=== PATIENT | male | born 1960 | race African-American/Black ===

== ENCOUNTER 2022-11-19 12:13 | Inpatient (IN) | payer MEDICARE, OTHER ==
[~2022-11-19] VITALS: Ht 177.8 cm; Wt 80.3 kg
[2022-11-19 12:44] LABS: BASOPHILS % (AUTO) 0.1 % (0.0-2.0); EOSINOPHILS % (AUTO) 0.7 % (1.0-6.0); HEMATOCRIT 42.4 % (41-53); HEMOGLOBIN 13.1 g/dL (13.5-17.5); LYMPHOCYTES # (AUTO) 0.5 K/uL (1.0-4.8); LYMPHOCYTES % (AUTO) 4.9 % (22.0-44.0); MEAN CORPUSCULAR HEMOGLOBIN 26.5 pg (26.0-34.0); MEAN CORPUSCULAR HGB CONC 30.8 G/dL (31.0-37.0); MEAN CORPUSCULAR VOLUME 86 fL (80-100); MONOCYTES # (AUTO) 0.1 K/uL (0.1-1.0); MONOCYTES % (AUTO) 0.8 % (2.0-9.0); NEUTROPHILS # (AUTO) 9.1 K/uL (1.8-7.7); PLATELET COUNT (AUTO) 140 K/uL (150-450); RED BLOOD CELL COUNT(AUTO) 4.92 MIL/uL (4.50-5.90); RED CELL DISTRIBUTION WIDTH 18.2 % (11.5-14.5)
[2022-11-19 12:46] LABS: NEUTROPHILS % (AUTO) 93.5 % (40.0-70.0)
[2022-11-19 12:55] LABS: CALCIUM, TOTAL 9.1 mg/dL (8.8-10.5); CREATININE 1.33 mg/dL (0.60-1.30); POTASSIUM 4.4 mmol/L (3.5-5.1)
[2022-11-19 12:56] LABS: INR 1.1 (0.9-1.1); PROTHROMBIN TIME 11.5 SEC (9.4-11.6)
[2022-11-19 13:00] LABS: BILIRUBIN,TOTAL 0.8 mg/dL (0.1-1.0); TOTAL PROTEIN, SERUM 8.6 g/dL (6.4-8.2)
[2022-11-19 13:13] LABS: ALBUMIN 3.4 g/dL (3.4-5.0)
[2022-11-19] MEDS ORDERED: SODIUM CHLORIDE 0.9% 1,000 ML IV ONE (13:15)
[2022-11-19] MEDS ORDERED: LORazepam 2 MG/ML VIAL IVP ONE (13:15)
[2022-11-19] MEDS ORDERED: IPRATROPIUM BROMIDE 0.5 MG/2.5 ML NEB SOLUTION NEB PRN (14:45)
[2022-11-19] MEDS ORDERED: ACETAMINOPHEN 325 MG TABLET PO PRN (14:45)
[2022-11-19] MEDS ORDERED: ALBUTEROL SULFATE 2.5 MG/0.5 ML NEB SOLUTION NEB PRN (14:45)
[2022-11-19] MEDS ORDERED: BISACODYL 10 MG RECTAL RECTAL SUPPOSITORY PR PRN (14:45)
[2022-11-19] MEDS ORDERED: ONDANSETRON HCL 4 MG/2 ML VIAL IVP PRN (14:45)
[2022-11-19] MEDS ORDERED: DEXTROSE 50%-WATER 25 GM/50 ML SYRINGE IVP PRN (14:45)
[2022-11-19] MEDS: SODIUM CHLORIDE 0.9% 1,000 ML IV SCH (15:01)
[2022-11-19 20:04] LABS: COVID AG,FIA SOURCE NASAL SWAB
[2022-11-19] MEDS ORDERED: ASCO500 PO (20:37)
[2022-11-19] MEDS ORDERED: LOSA-381 PO (20:37)
[2022-11-19] MEDS ORDERED: INSU3INS3 SQ (20:37)
[2022-11-19] MEDS ORDERED: EMPA25TA3 PO (20:37)
[2022-11-19] MEDS ORDERED: ASPI-1451 PO (20:37)
[2022-11-19] MEDS ORDERED: CHOL25TA4 PO (20:37)
[2022-11-19] MEDS ORDERED: AMYL1CAP63 PO (20:37)
[2022-11-19] MEDS ORDERED: FISH1CAP27 PO (20:37)
[2022-11-19] MEDS ORDERED: ATOR20TA65 PO (20:37)
[2022-11-20] VITALS (7 sets, daily range): BP systolic 102–110; BP diastolic 52–72
[2022-11-20] MEDS: SODIUM CHLORIDE 0.9% 1,000 ML IV SCH ×2 (03:12→15:33)
[2022-11-20 06:07] LABS: GLUCOMETER DEV NAME(LOC) 5N.1C; GLUCOSE,POINT OF CARE 117 MG/DL (70-110)
[2022-11-20 06:39] LABS: BASOPHILS % (AUTO) 0.3 % (0.0-2.0); EOSINOPHILS % (AUTO) 0.4 % (1.0-6.0); HEMATOCRIT 34.6 % (41-53); LYMPHOCYTES # (AUTO) 0.7 K/uL (1.0-4.8); LYMPHOCYTES % (AUTO) 6.5 % (22.0-44.0); MEAN CORPUSCULAR HEMOGLOBIN 26.8 pg (26.0-34.0); MEAN CORPUSCULAR HGB CONC 31.8 G/dL (31.0-37.0); MEAN CORPUSCULAR VOLUME 84 fL (80-100); MONOCYTES # (AUTO) 0.9 K/uL (0.1-1.0); MONOCYTES % (AUTO) 8.7 % (2.0-9.0); NEUTROPHILS # (AUTO) 8.5 K/uL (1.8-7.7); NEUTROPHILS % (AUTO) 84.1 % (40.0-70.0); PLATELET COUNT (AUTO) 96 K/uL (150-450); RED BLOOD CELL COUNT(AUTO) 4.11 MIL/uL (4.50-5.90); RED CELL DISTRIBUTION WIDTH 17.6 % (11.5-14.5)
[2022-11-20 07:14] LABS: ALANINE AMINOTRANSFERASE 71 U/L (12-78); ALBUMIN 2.6 g/dL (3.4-5.0); ALKALINE PHOSPHATASE 167 U/L (46-116); ANION GAP 7 mmol/L (8-16); ASPARTATE AMINOTRANSFERASE 58 U/L (15-37); BILIRUBIN,TOTAL 0.8 mg/dL (0.1-1.0); CALCIUM, TOTAL 8.1 mg/dL (8.8-10.5); CARBON DIOXIDE 25 mmol/L (22-29); CHLORIDE 104 mmol/L (98-107); CREATININE 1.14 mg/dL (0.60-1.30); FREE T4 (FREE THYROXINE) 0.99 ng/dL (0.76-1.46); GLOMERULAR FILTR. RATE CALC > 60 mL/min (>60); GLUCOSE,RANDOM 90 mg/dL (70-110); POTASSIUM 3.8 mmol/L (3.5-5.1); SODIUM SERUM 136 mmol/L (136-145); UREA NITROGEN, BLOOD 13 mg/dL (7-18)
[2022-11-20] MEDS: ASCORBIC ACID 500 MG TABLET PO SCH (09:27)
[2022-11-20] MEDS: ATORVASTATIN CALCIUM 20 MG TABLET PO SCH (09:27)
[2022-11-20] MEDS: CHOLECALCIFEROL (VIT D3) 1,000 UNITS [25 MCG] TABLET PO SCH (09:27)
[2022-11-20] MEDS ORDERED: AMYLASE/LIPASE/PROTEASE 60/12/38 MU DR CAPSULE PO SCH (11:30)
[2022-11-20] MEDS: AMYLASE/LIPASE/PROTEASE 60/12/38 MU DR CAPSULE PO SCH ×3 (11:52→20:21)
[2022-11-20 13:37] LABS: APPEARANCE,URINE CLEAR (CLEAR); BILIRUBIN,URINE NEGATIVE (NEGATIVE); GLUCOSE, URINE (UA) >=1000 mg/dL (NEGATIVE); KETONES,URINE NEGATIVE (NEGATIVE); LEUKOCYTE ESTERASE ,URINE NEGATIVE (NEGATIVE); NITRATE,URINE NEGATIVE (NEGATIVE); OCCULT BLOOD,URINE NEGATIVE (NEGATIVE); PROTEIN,URINE NEGATIVE (NEGATIVE); SPECIFIC GRAVITIY, URINE 1.012 (1.003-1.030); UROBILINOGEN,URINE <=1.0 mg/dL (<=1.0)
[2022-11-20 13:50] LABS: BACTERIA,URINE None Seen /HPF (None Seen); RBC,URINE None Seen /HPF (0-2); WBC,URINE None Seen /HPF (0-5)
[2022-11-20 13:51] LABS: SQUAMOUS EPITHELIAL CELL,UR Few /LPF (None Seen)
[2022-11-20] MEDS: OMEGA-3/DHA/EPA/FISH OIL 1,000 MG CAPSULE PO SCH ×2 (16:52→20:22)
[2022-11-20 18:31] LABS: GLUCOMETER DEV NAME(LOC) 5S.1B; GLUCOSE,POINT OF CARE 122 MG/DL (70-110)
[2022-11-20 18:32] LABS: GLUCOMETER DEV NAME(LOC) 5S.1B; GLUCOSE,POINT OF CARE 107 MG/DL (70-110)
[2022-11-21] VITALS (7 sets, daily range): BP systolic 106–141; BP diastolic 64–99
[2022-11-21] MEDS: SODIUM CHLORIDE 0.9% 1,000 ML IV SCH ×2 (03:45→17:23)
[2022-11-21] MEDS: AMYLASE/LIPASE/PROTEASE 60/12/38 MU DR CAPSULE PO SCH ×4 (08:49→20:52)
[2022-11-21] MEDS: OMEGA-3/DHA/EPA/FISH OIL 1,000 MG CAPSULE PO SCH ×3 (08:49→20:52)
[2022-11-21] MEDS: ASCORBIC ACID 500 MG TABLET PO SCH (08:49)
[2022-11-21] MEDS: ATORVASTATIN CALCIUM 20 MG TABLET PO SCH (08:50)
[2022-11-21] MEDS: CHOLECALCIFEROL (VIT D3) 1,000 UNITS [25 MCG] TABLET PO SCH (08:50)
[2022-11-21] MEDS ORDERED: BARIUM SULFATE 0.1% SUSPENSION 450 ML BOTTLE ONE (14:20)
[2022-11-21] MEDS ORDERED: SODIUM CHLORIDE 0.9% 100 ML ONE (17:11)
[2022-11-21] MEDS ORDERED: IOHEXOL 350 MG/ML 100 ML VIAL ONE (17:11)
[2022-11-21] MEDS: INSULIN LISPRO 100 UNITS/ML SQ PRN ×2 (17:22→20:52)
[2022-11-21 20:26] LABS: GLUCOMETER DEV NAME(LOC) 5S.1B; GLUCOSE,POINT OF CARE 150 MG/DL (70-110)
[2022-11-21 20:26] LABS: GLUCOMETER DEV NAME(LOC) 5S.1B; GLUCOSE,POINT OF CARE 137 MG/DL (70-110)
[2022-11-21 20:26] LABS: GLUCOMETER DEV NAME(LOC) 5S.1B; GLUCOSE,POINT OF CARE 107 MG/DL (70-110)
[2022-11-22] VITALS (8 sets, daily range): BP systolic 109–136; BP diastolic 63–82
[2022-11-22] MEDS: SODIUM CHLORIDE 0.9% 1,000 ML IV SCH ×2 (05:24→16:25)
[2022-11-22 05:36] LABS: GLUCOMETER DEV NAME(LOC) 5N.1C; GLUCOSE,POINT OF CARE 169 MG/DL (70-110)
[2022-11-22] MEDS: INSULIN LISPRO 100 UNITS/ML SQ PRN ×4 (06:12→21:06)
[2022-11-22 06:55] LABS: BASOPHILS % (AUTO) 0.5 % (0.0-2.0); EOSINOPHILS % (AUTO) 2.9 % (1.0-6.0); HEMATOCRIT 35.5 % (41-53); HEMOGLOBIN 11.3 g/dL (13.5-17.5); LYMPHOCYTES # (AUTO) 0.8 K/uL (1.0-4.8); LYMPHOCYTES % (AUTO) 14.5 % (22.0-44.0); MEAN CORPUSCULAR HEMOGLOBIN 26.7 pg (26.0-34.0); MEAN CORPUSCULAR VOLUME 84 fL (80-100); MONOCYTES # (AUTO) 0.8 K/uL (0.1-1.0); MONOCYTES % (AUTO) 14.5 % (2.0-9.0); NEUTROPHILS # (AUTO) 3.5 K/uL (1.8-7.7); NEUTROPHILS % (AUTO) 67.6 % (40.0-70.0); PLATELET COUNT (AUTO) 132 K/uL (150-450); RED BLOOD CELL COUNT(AUTO) 4.24 MIL/uL (4.50-5.90); RED CELL DISTRIBUTION WIDTH 17.5 % (11.5-14.5)
[2022-11-22 07:31] LABS: ALANINE AMINOTRANSFERASE 56 U/L (12-78); ALBUMIN 2.6 g/dL (3.4-5.0); ALKALINE PHOSPHATASE 187 U/L (46-116); ANION GAP 6 mmol/L (8-16); ASPARTATE AMINOTRANSFERASE 33 U/L (15-37); BILIRUBIN,TOTAL 0.4 mg/dL (0.1-1.0); CALCIUM, TOTAL 8.6 mg/dL (8.8-10.5); CARBON DIOXIDE 27 mmol/L (22-29); CHLORIDE 104 mmol/L (98-107); CREATININE 1.08 mg/dL (0.60-1.30); GLOMERULAR FILTR. RATE CALC > 60 mL/min (>60); GLUCOSE,RANDOM 154 mg/dL (70-110); POTASSIUM 3.9 mmol/L (3.5-5.1); SODIUM SERUM 137 mmol/L (136-145); TOTAL PROTEIN, SERUM 7.5 g/dL (6.4-8.2); UREA NITROGEN, BLOOD 12 mg/dL (7-18)
[2022-11-22 07:31] LABS: GLUCOMETER DEV NAME(LOC) 5S.1B; GLUCOSE,POINT OF CARE 172 MG/DL (70-110)
[2022-11-22] MEDS: OMEGA-3/DHA/EPA/FISH OIL 1,000 MG CAPSULE PO SCH ×3 (08:29→21:00)
[2022-11-22] MEDS: ASCORBIC ACID 500 MG TABLET PO SCH (08:29)
[2022-11-22] MEDS: ATORVASTATIN CALCIUM 20 MG TABLET PO SCH (08:29)
[2022-11-22] MEDS: CHOLECALCIFEROL (VIT D3) 1,000 UNITS [25 MCG] TABLET PO SCH (08:30)
[2022-11-22] MEDS: AMYLASE/LIPASE/PROTEASE 60/12/38 MU DR CAPSULE PO SCH ×4 (08:31→20:33)
[2022-11-22 11:46] LABS: GLUCOMETER DEV NAME(LOC) 5S.1B; GLUCOSE,POINT OF CARE 207 MG/DL (70-110)
[2022-11-22] MEDS ORDERED: GADOTERATE MEGLUMINE 10 MMOL/20 ML VIAL IVP ONE (14:30)
[2022-11-22 19:31] LABS: GLUCOMETER DEV NAME(LOC) 6N.2B; GLUCOSE,POINT OF CARE 255 MG/DL (70-110)
[2022-11-23 02:31] LABS: GLUCOMETER DEV NAME(LOC) 6S.1B; GLUCOSE,POINT OF CARE 171 MG/DL (70-110)
[2022-11-23] MEDS: SODIUM CHLORIDE 0.9% 1,000 ML IV SCH ×2 (03:36→18:49)
[2022-11-23 04:34] VITALS: BP 105/64
[2022-11-23 07:07] LABS: GLUCOMETER DEV NAME(LOC) 6N.2B; GLUCOSE,POINT OF CARE 149 MG/DL (70-110)
[2022-11-23 08:00] VITALS: BP 108/57
[2022-11-23] MEDS: AMYLASE/LIPASE/PROTEASE 60/12/38 MU DR CAPSULE PO SCH ×4 (08:00→20:25)
[2022-11-23] MEDS: CHOLECALCIFEROL (VIT D3) 1,000 UNITS [25 MCG] TABLET PO SCH (09:00)
[2022-11-23] MEDS: OMEGA-3/DHA/EPA/FISH OIL 1,000 MG CAPSULE PO SCH ×3 (09:00→21:00)
[2022-11-23] MEDS: ATORVASTATIN CALCIUM 20 MG TABLET PO SCH (09:00)
[2022-11-23] MEDS: ASCORBIC ACID 500 MG TABLET PO SCH (09:00)
[2022-11-23] MEDS ORDERED: AMYL1CAP63 PO (11:31)
[2022-11-23 11:36] LABS: GLUCOMETER DEV NAME(LOC) 6N.2B; GLUCOSE,POINT OF CARE 130 MG/DL (70-110)
[2022-11-23 15:10] VITALS: BP_SYST 105; BP_SYST 119; BP_DIAS 54; BP_DIAS 80
[2022-11-23 15:42] VITALS: BP 108/63
[2022-11-23] MEDS: INSULIN LISPRO 100 UNITS/ML SQ PRN ×2 (18:03→20:30)
[2022-11-23 19:23] VITALS: BP 117/73
[2022-11-23 22:11] LABS: GLUCOMETER DEV NAME(LOC) 6N.2B; GLUCOSE,POINT OF CARE 190 MG/DL (70-110)
[2022-11-23 22:11] LABS: GLUCOMETER DEV NAME(LOC) 6N.2B; GLUCOSE,POINT OF CARE 231 MG/DL (70-110)
[2022-11-24 04:21] VITALS: BP 99/53
[2022-11-24] MEDS: INSULIN LISPRO 100 UNITS/ML SQ PRN ×4 (06:04→20:08)
[2022-11-24] MEDS: SODIUM CHLORIDE 0.9% 1,000 ML IV SCH ×2 (06:05→20:00)
[2022-11-24 06:26] LABS: GLUCOMETER DEV NAME(LOC) 6N.2B; GLUCOSE,POINT OF CARE 182 MG/DL (70-110)
[2022-11-24] MEDS: OMEGA-3/DHA/EPA/FISH OIL 1,000 MG CAPSULE PO SCH ×3 (08:11→20:17)
[2022-11-24] MEDS: AMYLASE/LIPASE/PROTEASE 60/12/38 MU DR CAPSULE PO SCH ×4 (08:11→20:01)
[2022-11-24] MEDS: CHOLECALCIFEROL (VIT D3) 1,000 UNITS [25 MCG] TABLET PO SCH (08:12)
[2022-11-24] MEDS: ASCORBIC ACID 500 MG TABLET PO SCH (08:12)
[2022-11-24] MEDS: ATORVASTATIN CALCIUM 20 MG TABLET PO SCH (08:12)
[2022-11-24 08:30] VITALS: BP 117/74
[2022-11-24 12:07] LABS: GLUCOMETER DEV NAME(LOC) 6N.2B; GLUCOSE,POINT OF CARE 166 MG/DL (70-110)
[2022-11-24 15:06] VITALS: BP_SYST 106; BP_SYST 91; BP_DIAS 51; BP_DIAS 62
[2022-11-24 15:09] VITALS: BP 106/62
[2022-11-24 15:11] VITALS: BP 91/51
[2022-11-24 17:56] LABS: GLUCOMETER DEV NAME(LOC) 6S.1B; GLUCOSE,POINT OF CARE 149 MG/DL (70-110)
[2022-11-24 19:35] VITALS: BP 108/69
[2022-11-24 22:21] LABS: GLUCOMETER DEV NAME(LOC) 6N.2B; GLUCOSE,POINT OF CARE 233 MG/DL (70-110)
[2022-11-25 04:05] VITALS: BP 121/76
[2022-11-25] MEDS: SODIUM CHLORIDE 0.9% 1,000 ML IV SCH ×2 (06:39→20:07)
[2022-11-25 07:06] LABS: QUANTIFERON, TB GOLD PLUS Negative (Negative)
[2022-11-25] MEDS: OMEGA-3/DHA/EPA/FISH OIL 1,000 MG CAPSULE PO SCH ×3 (07:59→20:20)
[2022-11-25] MEDS: CHOLECALCIFEROL (VIT D3) 1,000 UNITS [25 MCG] TABLET PO SCH (07:59)
[2022-11-25] MEDS: AMYLASE/LIPASE/PROTEASE 60/12/38 MU DR CAPSULE PO SCH ×4 (07:59→20:12)
[2022-11-25] MEDS: ATORVASTATIN CALCIUM 20 MG TABLET PO SCH (07:59)
[2022-11-25] MEDS: ASCORBIC ACID 500 MG TABLET PO SCH (07:59)
[2022-11-25] MEDS: DOCUSATE SODIUM 100 MG CAPSULE PO PRN (08:00)
[2022-11-25 08:04] VITALS: BP 105/60
[2022-11-25 08:11] LABS: GLUCOMETER DEV NAME(LOC) 6N.2B; GLUCOSE,POINT OF CARE 131 MG/DL (70-110)
[2022-11-25 09:15] VITALS: BP_SYST 100; BP_SYST 105; BP_DIAS 58; BP_DIAS 60
[2022-11-25] MEDS: INSULIN LISPRO 100 UNITS/ML SQ PRN ×3 (11:42→20:19)
[2022-11-25 12:21] LABS: GLUCOMETER DEV NAME(LOC) 6N.2B; GLUCOSE,POINT OF CARE 210 MG/DL (70-110)
[2022-11-25] MEDS ORDERED: INDIUM IN-111 OXYQUINOLINE/.5MCL ISOTOPE 1 EA INJ INJ ONE (14:20)
[2022-11-25 15:45] VITALS: BP 113/58
[2022-11-25 18:46] LABS: GLUCOMETER DEV NAME(LOC) 6N.2B; GLUCOSE,POINT OF CARE 112 MG/DL (70-110)
[2022-11-25 20:02] VITALS: BP 108/59
[2022-11-26 04:30] VITALS: BP 122/67
[2022-11-26 05:46] LABS: GLUCOMETER DEV NAME(LOC) 6S.1B; GLUCOSE,POINT OF CARE 259 MG/DL (70-110)
[2022-11-26] MEDS: INSULIN LISPRO 100 UNITS/ML SQ PRN ×4 (06:42→21:06)
[2022-11-26 06:59] LABS: BASOPHILS % (AUTO) 0.7 % (0.0-2.0); EOSINOPHILS % (AUTO) 2.4 % (1.0-6.0); HEMATOCRIT 34.9 % (41-53); HEMOGLOBIN 11.3 g/dL (13.5-17.5); LYMPHOCYTES # (AUTO) 0.7 K/uL (1.0-4.8); LYMPHOCYTES % (AUTO) 11.3 % (22.0-44.0); MEAN CORPUSCULAR HEMOGLOBIN 27.1 pg (26.0-34.0); MEAN CORPUSCULAR HGB CONC 32.5 G/dL (31.0-37.0); MEAN CORPUSCULAR VOLUME 83 fL (80-100); MONOCYTES # (AUTO) 0.5 K/uL (0.1-1.0); MONOCYTES % (AUTO) 8.1 % (2.0-9.0); NEUTROPHILS # (AUTO) 4.9 K/uL (1.8-7.7); NEUTROPHILS % (AUTO) 77.5 % (40.0-70.0); PLATELET COUNT (AUTO) 208 K/uL (150-450); RED BLOOD CELL COUNT(AUTO) 4.19 MIL/uL (4.50-5.90)
[2022-11-26 07:13] LABS: ALANINE AMINOTRANSFERASE 46 U/L (12-78); ALBUMIN 2.7 g/dL (3.4-5.0); ALKALINE PHOSPHATASE 241 U/L (46-116); ANION GAP 6 mmol/L (8-16); ASPARTATE AMINOTRANSFERASE 34 U/L (15-37); BILIRUBIN,TOTAL 0.4 mg/dL (0.1-1.0); C-REACTIVE PROTEIN QUANT 6.78 mg/dL (0.00-0.30); CALCIUM, TOTAL 8.8 mg/dL (8.8-10.5); CARBON DIOXIDE 27 mmol/L (22-29); CHLORIDE 102 mmol/L (98-107); CREATININE 1.26 mg/dL (0.60-1.30); GLOMERULAR FILTR. RATE CALC > 60 mL/min (>60); GLUCOSE,RANDOM 201 mg/dL (70-110); POTASSIUM 3.8 mmol/L (3.5-5.1); SODIUM SERUM 135 mmol/L (136-145); TOTAL PROTEIN, SERUM 8.1 g/dL (6.4-8.2); UREA NITROGEN, BLOOD 15 mg/dL (7-18)
[2022-11-26 07:26] VITALS: BP 133/80
[2022-11-26] MEDS: CHOLECALCIFEROL (VIT D3) 1,000 UNITS [25 MCG] TABLET PO SCH (08:43)
[2022-11-26] MEDS: ASCORBIC ACID 500 MG TABLET PO SCH (08:44)
[2022-11-26] MEDS: AMYLASE/LIPASE/PROTEASE 60/12/38 MU DR CAPSULE PO SCH ×4 (08:44→21:05)
[2022-11-26] MEDS: OMEGA-3/DHA/EPA/FISH OIL 1,000 MG CAPSULE PO SCH ×3 (08:44→21:04)
[2022-11-26] MEDS: ATORVASTATIN CALCIUM 20 MG TABLET PO SCH (08:44)
[2022-11-26] MEDS: SODIUM CHLORIDE 0.9% 1,000 ML IV SCH (08:45)
[2022-11-26 10:01] VITALS: BP_SYST 114; BP_SYST 133; BP_DIAS 63; BP_DIAS 80
[2022-11-26 11:33] LABS: GLUCOMETER DEV NAME(LOC) 6N.2B; GLUCOSE,POINT OF CARE 214 MG/DL (70-110)
[2022-11-26 14:16] LABS: GLUCOMETER DEV NAME(LOC) 6N.2B; GLUCOSE,POINT OF CARE 188 MG/DL (70-110)
[2022-11-26 15:34] VITALS: BP 119/60
[2022-11-26 19:44] VITALS: BP 135/53
[2022-11-26 20:36] LABS: GLUCOMETER DEV NAME(LOC) 6S.1B; GLUCOSE,POINT OF CARE 159 MG/DL (70-110)
[2022-11-26] MEDS: DOCUSATE SODIUM 100 MG CAPSULE PO PRN (21:05)
[2022-11-26 23:56] LABS: GLUCOMETER DEV NAME(LOC) 6S.1B; GLUCOSE,POINT OF CARE 209 MG/DL (70-110)
[2022-11-27] MEDS: SODIUM CHLORIDE 0.9% 1,000 ML IV SCH ×2 (00:38→08:25)
[2022-11-27 04:17] VITALS: BP 110/67
[2022-11-27] MEDS: INSULIN LISPRO 100 UNITS/ML SQ PRN ×2 (06:12→11:27)
[2022-11-27 06:36] LABS: GLUCOMETER DEV NAME(LOC) 6N.2B; GLUCOSE,POINT OF CARE 171 MG/DL (70-110)
[2022-11-27 07:38] VITALS: BP_SYST 109; BP_SYST 115; BP_SYST 130; BP_DIAS 58; BP_DIAS 63; BP_DIAS 68
[2022-11-27 07:38] LABS: URIC ACID 3.8 mg/dL (2.6-7.2)
[2022-11-27 08:06] LABS: HEPATITIS C AB (EIA) Non Reactive (Non Reactive)
[2022-11-27] MEDS: CHOLECALCIFEROL (VIT D3) 1,000 UNITS [25 MCG] TABLET PO SCH (08:23)
[2022-11-27] MEDS: OMEGA-3/DHA/EPA/FISH OIL 1,000 MG CAPSULE PO SCH (08:25)
[2022-11-27] MEDS: AMYLASE/LIPASE/PROTEASE 60/12/38 MU DR CAPSULE PO SCH ×2 (08:25→11:23)
[2022-11-27] MEDS: ATORVASTATIN CALCIUM 20 MG TABLET PO SCH (08:25)
[2022-11-27] MEDS: ASCORBIC ACID 500 MG TABLET PO SCH (08:25)
[2022-11-27 10:06] LABS: BARTONELLA QUINTANA IGG TITER Negative titer (Neg:<1:320); BARTONELLA QUINTANA IGM TITER Negative titer (Neg:<1:100)
[2022-11-27 13:41] LABS: GLUCOMETER DEV NAME(LOC) 6N.2B; GLUCOSE,POINT OF CARE 198 MG/DL (70-110)
== END 2022-11-27 15:00 | disposition home or self-care (01) | DRG 684 ==
LOC: EMS 12:14 → 5S 19:01 → 6N 11-22 13:50
PROVIDERS: ADMIT Internal Medicine; ATTEND Internal Medicine
DX: N17.9 Acute kidney failure, unspecified (principal); I95.1 Orthostatic hypotension; I10 Essential (primary) hypertension; E11.9 Type 2 diabetes mellitus without complications; E86.0 Dehydration; G89.29 Other chronic pain; Z20.822 Contact with and (suspected) exposure to COVID-19; F41.1 Generalized anxiety disorder; E78.5 Hyperlipidemia, unspecified; D18.03 Hemangioma of intra-abdominal structures; K76.9 Liver disease, unspecified; Z85.07 Personal history of malignant neoplasm of pancreas; Z90.411 Acquired partial absence of pancreas
CPT/HCPCS: 36245; 36569; 70450; 71045; 71250; 72192; 74150; 74177; 74183; 76937; 78806; 80053; 80074; 81001; 82728; 82962; 82977; 83540; 83550; 84145; 84439; 84443; 84484; 84550; 85025; 85610; 86038; 86140; 86480; 86611; 86635; 86738; 86753; 87040; 93005; 93306; 97116; 97162; 99285; A9547; J2060; J7030; J7050; Q9967; 36415-L1; 36415-TC

== ENCOUNTER 2025-07-08 09:32 | Emergency (ER) | payer OTHER ==
[~2025-07-08] VITALS: Ht 177.8 cm; Wt 90.9 kg
[~2025-07-08 09:32] MED LIST: AMYL1CAP63 PO; ASCO500 PO; ASPI-1451 PO; ATOR20TA65 PO; CHOL25TA4 PO; EMPA25TA3 PO; FISH1CAP27 PO; INSU3INS3 SQ; LOSA-381 PO
[2025-07-08 10:30] LABS: PLATELET COUNT (AUTO) 174 K/uL (150-450); RED BLOOD CELL COUNT(AUTO) 5.70 MIL/uL (4.50-5.90); RED CELL DISTRIBUTION WIDTH 17.5 % (11.5-14.5); WHITE BLOOD COUNT (AUTO) 5.3 K/uL (4.5-11.0)
[2025-07-08 10:31] LABS: ERYTHROCYTE SEDIMENTATION RATE 55 MM/HR (0-20)
[2025-07-08 10:47] LABS: CALCIUM, TOTAL 8.6 mg/dL (8.8-10.5); CREATININE 1.29 mg/dL (0.60-1.30); GLOMERULAR FILTR. RATE CALC > 60 mL/min (>60); GLUCOSE,RANDOM 146 mg/dL (70-110); SODIUM SERUM 135 mmol/L (136-145); UREA NITROGEN, BLOOD 17 mg/dL (7-18)
[2025-07-08 10:54] LABS: ASPARTATE AMINOTRANSFERASE 47.0 U/L (15-37); TOTAL PROTEIN, SERUM 8.4 g/dL (6.4-8.2)
[2025-07-08 10:55] LABS: TROPONIN I-HIGH SENSITIVITY 5 ng/L (<76)
[2025-07-08 13:33] VITALS: TEMP 98.2
[2025-07-08] MEDS ORDERED: PRED-554 PO (13:38)
[2025-07-08] MEDS ORDERED: VALA500T42 PO (13:38)
[2025-07-08] MEDS: MINERAL OIL/PETROLATUM,WHITE PF 3.5 GM OPHTHALMIC OINTMENT OD ONE (13:47)
[2025-07-08 13:48] VITALS: BP 112/65; PULSE 80; RESP 16; O2SAT 100
== END 2025-07-08 13:49 | disposition home or self-care (01) ==
LOC: EMS 09:34
DX: G51.0 Bell's palsy (principal); E11.9 Type 2 diabetes mellitus without complications; I10 Essential (primary) hypertension; F41.9 Anxiety disorder, unspecified; Z85.07 Personal history of malignant neoplasm of pancreas; Z79.82 Long term (current) use of aspirin; Z79.899 Other long term (current) drug therapy; Z98.890 Other specified postprocedural states
CPT/HCPCS: 70450; 80048; 80076; 82962; 84484; 85025; 85610; 85651; 93005; 99284